=== PATIENT | female | born 1965 | race American Indian/Alaskan Native ===

== ENCOUNTER 2018-02-07 06:14 | Emergency (ER) | payer OTHER ==
[2018-02-07 06:48] VITALS: TEMP 98.6; O2SAT 98
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
[2018-02-07 10:57] VITALS: BP 110/73; PULSE 76; RESP 18
== END 2018-02-07 10:57 | disposition home or self-care (01) ==
LOC: ED 06:14 → MERGE 06:14 → ED 10:57
DX: S02.2XXA Fracture of nasal bones, initial encounter for closed fracture (principal); Y04.0XXA Assault by unarmed brawl or fight, initial encounter; Y92.9 Unspecified place or not applicable

== ENCOUNTER 2018-03-04 04:09 | Emergency (ER) | payer OTHER ==
[2018-03-04 04:34] VITALS: RESP 18; TEMP 97.7
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
[2018-03-04 06:12] VITALS: BP 120/77; PULSE 82; O2SAT 97
--- NOTE | 2018-03-04 08:19 | RAD ---
PROCEDURE: Radiographs of the Lumbar Spine. HISTORY: fall COMPARISON: No prior. FINDINGS: BONES: Levoscoliosis No listhesis. No fracture. DISC SPACES: Unremarkable. OTHER FINDINGS: Right L4-5 facet hypertrophic arthrosis. Surgical clips right upper quadrant -cholecystectomy status inferred. Moderate stool retention IMPRESSION: No fracture
== END 2018-03-04 05:37 | disposition home or self-care (01) ==
LOC: ED 04:09
DX: M54.5 Low back pain (principal)

== ENCOUNTER 2018-06-08 19:54 | Emergency (ER) | payer OTHER ==
[2018-06-08 19:54] VITALS: BMI 18.8
[2018-06-08 21:04] VITALS: RESP 18; TEMP 99.8; O2SAT 100
[2018-06-08] MEDS ORDERED: Oxycodone/Acetaminophen 5/325 mg Tab PO STA (21:11)
--- NOTE | 2018-06-08 21:15 | ED PDOC ---
Arrival/HPI - General Chief Complaint: Dental Pain Time Seen by Provider: 06/08/18 21:10 Historian: Patient - History of Present Illness Narrative History of Present Illness (Text): 06/08/18 21:11 52yo female with no pmhx who present with 2days history of left sided lower toothache. Notes that she has been taking Tylenol without relieve. She denies trauma ,fever, chills. States she plans to see a Dentist. Past Medical History - Provider Review Nursing Documentation Reviewed: Yes - Infectious Disease Hx of Infectious Diseases: None - Cardiac Hx Cardiac Disorders: No - Pulmonary Hx Respiratory Disorders: Yes Hx Asthma: Yes - Neurological Hx Neurological Disorder: No - HEENT Hx HEENT Disorder: No - Renal Hx Renal Disorder: No - Endocrine/Metabolic Hx Endocrine Disorders: No - Hematological/Oncological Hx Blood Disorders: No - Integumentary Hx Dermatological Disorder: No - Musculoskeletal/Rheumatological Hx Musculoskeletal Disorders: No - Gastrointestinal Hx Gastrointestinal Disorders: No - Genitourinary/Gynecological Hx Genitourinary Disorders: No - Psychiatric Hx Psychophysiologic Disorder: Yes Hx Anxiety: Yes Hx Substance Use: Yes - Surgical History Other/Comment: Explore Lap with Adhesiolysis, Bladder surgery many years ago - Anesthesia Hx Anesthesia: Yes Hx Anesthesia Reactions: No Hx Malignant Hyperthermia: No Family/Social History - Physician Review Nursing Documentation Reviewed: Yes Family/Social History: Unknown Family HX Smoking Status: Heavy Smoker > 10 Cigarettes Daily Hx Alcohol Use: No Hx Substance Use: Yes Substance used: Herion Allergies/Home Meds Allergies/Adverse Reactions: Allergies NSAIDS (Non-Steroidal Anti-Inflamma Allergy (Verified 06/08/18 21:01) RASH sulfamethoxazole [From Bactrim] Allergy (Verified 06/08/18 21:01) RASH trimethoprim [From Bactrim] Allergy (Verified 06/08/18 21:01) RASH ibuprofen [From Motrin] Adverse Reaction (Verified 06/08/18 21:01) VOMITING tramadol Adverse Reaction (Verified 06/08/18 21:01) VOMITING Home Medications: Home Meds Medication Instructions Recorded Confirmed Naproxen 500 mg PO BID 03/04/18 03/04/18 Review of Systems - Physician Review All systems were reviewed & negative as marked: Yes - Review of Systems Constitutional: Normal Eyes: Normal ENT: Other (toothache) Respiratory: Normal Cardiovascular: Normal Gastrointestinal: Normal Genitourinary Female: Normal Musculoskeletal: Normal Skin: Normal Neurological: Normal Endocrine: Normal Hemo/Lymphatic: Normal Psychiatric: Normal Physical Exam Vital Signs Reviewed: Yes Vital Signs Temp Pulse Resp BP Pulse Ox 06/08/18 21:03 99.8 F H 68 18 135/86 100 Temperature: Afebrile Blood Pressure: Normal Pulse: Regular Respiratory Rate: Normal Appearance: Positive for: Well-Appearing, Non-Toxic, Comfortable Pain Distress: None Mental Status: Positive for: Alert and Oriented X 3 - Systems Exam Head: Present: Atraumatic, Normocephalic Pupils: Present: PERRL Extroacular Muscles: Present: EOMI Conjunctiva: Present: Normal Mouth: Present: Moist Mucous Membranes. No: Normal Teeth (Poor dentition in general. Multiple missing tooth. Mild left sided lower gum swelling noted) Neck: Present: Normal Range of Motion Respiratory/Chest: Present: Clear to Auscultation, Good Air Exchange. No: Respiratory Distress, Accessory Muscle Use Cardiovascular: Present: Regular Rate and Rhythm, Normal S1, S2. No: Murmurs Abdomen: No: Tenderness, Distention, Peritoneal Signs Back: Present: Normal Inspection Upper Extremity: Present: Normal Inspection. No: Cyanosis, Edema Lower Extremity: Present: Normal Inspection. No: Edema Neurological: Present: GCS=15, CN II-XII Intact, Speech Normal Skin: Present: Warm, Dry, Normal Color. No: Rashes Psychiatric: Present: Alert, Oriented x 3, Normal Insight, Normal Concentration Disposition/Present on Arrival - Present on Arrival Any Indicators Present on Arrival: No History of DVT/PE: No History of Uncontrolled Diabetes: No Urinary Catheter: No History of Decub. Ulcer: No History Surgical Site Infection Following: None - Disposition Have Diagnosis and Disposition been Completed?: Yes Diagnosis: Dental caries Disposition: HOME/ ROUTINE Disposition Time: 21:15 Patient Plan: Discharge Condition: STABLE Discharge Instructions (ExitCare): Tooth Decay, Adult (DC), Dental Pain Prescriptions: Amoxicillin 500 mg PO TID #21 tablet traMADol [Ultram] 50 mg PO Q6 #9 tab Referrals: [facility] [place] - Follow up with primary
[2018-06-08 21:52] VITALS: BP 131/82; PULSE 72
== END 2018-06-08 21:20 | disposition home or self-care (01) ==
LOC: ED 19:54
DX: K02.9 Dental caries, unspecified (principal); F17.210 Nicotine dependence, cigarettes, uncomplicated